=== PATIENT | female | born 2000 | race Two or more races ===

== ENCOUNTER 2021-11-18 21:39 | Inpatient (IN) | payer OTHER ==
[~2021-11-18] VITALS: Ht 165.1 cm; Wt 100.2 kg
[2021-11-18] MEDS ORDERED: IRON236 MG (22:11)
[2021-11-18] MEDS ORDERED: PRENATAL CAPLE1 EAC1 PO (22:11)
== END 2021-11-21 12:07 | disposition home or self-care (01) | DRG 807 ==
LOC: OB/GYN 21:39 → LDR 21:39 → OB/GYN 11-19 20:30
PROVIDERS: ADMIT Obstetrics & Gynecology; ATTEND Obstetrics & Gynecology
PROC: 10E0XZZ Delivery of Products of Conception, External Approach (ICD-10-PCS; principal; 2021-11-18)
PROC: 4A1HXCZ Monitoring of Products of Conception, Cardiac Rate, External Approach (ICD-10-PCS; 2021-11-18)
DX: O80 Encounter for full-term uncomplicated delivery (principal); Z37.0 Single live birth; Z3A.39 39 weeks gestation of pregnancy; Z20.822 Contact with and (suspected) exposure to COVID-19